=== PATIENT | male | born 1945 | race Caucasian/White ===

== ENCOUNTER 2024-09-27 06:06 | Inpatient (IN) | payer MEDICARE ==
[2024-09-27] MEDS ORDERED: Lidocaine 1% (PF) 30 ML VIAL ONE (06:51)
[2024-09-27] MEDS ORDERED: Heparin 10,000 UNITS/ 10 ML VIAL ONE (06:51)
[2024-09-27] MEDS ORDERED: Aspirin 81 mg Enteric Coated Tablet ONE (09:32)
[2024-09-27] MEDS ORDERED: Iopamidol 370 76% 100 ML VIAL ONE (11:47)
[2024-09-27 13:24] LABS: #Basophils Less than 0.03 10x3/uL (0.0-0.2); #Eosinophils 0.18 10x3/uL (0.0-0.7); #Monocytes 0.66 10x3/uL (0.11-0.59); #Neutrophils 3.35 10x3/uL (1.40-6.50); %Basophils 0.3 % (0.0-1.0); %Eosinophils 2.7 % (0.0-10.0); %Lymphocytes 37.4 % (21.0-51.0); %Monocytes 9.7 % (0.0-10.0); %Neutrophils 49.3 % (42.0-75.0); Hematocrit 42.9 % (42.0-52.0); Hemoglobin 14.2 g/dL (14.0-18.0); Mean Corpuscular Hemoglobin 31.1 pg (27.0-31.0); Mean Corpuscular Volume 93.9 fL (78.0-98.0); Platelet Count 160 10x3/uL (130-400); Red Blood Cell (RBC) Count 4.57 mill/uL (4.70-6.10); White Blood Cell (WBC) Count 6.79 10x3/uL (4.8-10.8)
[2024-09-27 13:45] LABS: PTT 31.0 sec (22.9-36.1)
[2024-09-27 13:46] LABS: Anion Gap 13 mmol/L (10-20); BUN (Urea Nitrogen) 11 mg/dL (8.4-25.7); Calc. Creatinine Clearance 108 mL/min (70-130); Calcium 8.8 mg/dL (7.8-10.44); Carbon Dioxide 26 mmol/L (23-31); Chloride 106 mmol/L (98-107); Glucose 96 mg/dL (83-110); INR-International Normal Ratio 1.1; Potassium 4.5 mmol/L (3.5-5.1); Prothrombin Time 14.4 sec (12.0-14.7); Sodium 140 mmol/L (136-145)
[2024-09-27] MEDS: Nitroglycerin 2% Ointment 1 INCH/1 GM Packet TOP SCH (14:02)
[2024-09-27] MEDS ORDERED: Nitroglycerin 0.4 MG TAB (25 Tab Bottle) SL PRN (14:30)
[2024-09-27] MEDS ORDERED: Sodium Chloride 0.9% 250 ML BAG (BAXTER) IVPB PRN (14:30)
[2024-09-27] MEDS ORDERED: Acetaminophen/Codeine 30-300mg Tablet PO PRN ×2 (14:30)
[2024-09-27] MEDS ORDERED: Aspirin 81 mg Enteric Coated Tablet PO SCH (18:00)
[2024-09-28 04:44] LABS: Cardiac Risk 7.1 (Less than 4.5); Cholesterol 220.0 mg/dl (< 200 Desired); HDL Cholesterol 31.0 mg/dL (>60 Neg Risk); LDL Cholesterol, Calculated 162.0 mg/dL; Triglycerides 136.0 mg/dL (Less than 150)
[2024-09-28] MEDS ORDERED: PHENYLEPHRINE-NS 100 MCG/ML 10 ML SYRINGE ONE ×2 (06:49→07:11)
[2024-09-28] MEDS ORDERED: Heparin 10,000 UNITS/1 ML VIAL 30,000 UNITS in Sodium Chloride 0.9% 1,000 ML FS SCH (07:00)
[2024-09-28] MEDS ORDERED: Rocuronium Bromide 10 MG/ML (10ML VIAL) ONE ×2 (07:10→08:04)
[2024-09-28] MEDS ORDERED: fentaNYL PF 100 MCG/2 ML SYRINGE ONE ×3 (07:10→11:37)
[2024-09-28] MEDS ORDERED: PROPOFOL 20 ML ONE ×2 (07:10→09:34)
[2024-09-28] MEDS ORDERED: CEFAZOLIN 1 GM VIAL ONE (07:11)
[2024-09-28] MEDS ORDERED: Lidocaine 2% PF 100 mg/5 ml Syringe ONE (07:11)
[2024-09-28] MEDS ORDERED: CEFAZOLIN 2 GM VIAL ONE (07:17)
[2024-09-28] MEDS ORDERED: Heparin 5,000 UNITS/ML VIAL ONE (08:18)
[2024-09-28] MEDS ORDERED: Heparin 30,000 units/30 ml VIAL ONE (08:18)
[2024-09-28] MEDS ORDERED: Cardioplegic Soln 1,000 ML BAG ONE (08:18)
[2024-09-28] MEDS ORDERED: Thrombin 5000 UNITS/5 ML VIAL ONE (08:18)
[2024-09-28] MEDS ORDERED: niCARdipine 25 MG/10 ML SDV ONE (11:14)
[2024-09-28] MEDS: Aspirin 81 mg Enteric Coated Tablet PO SCH (12:44)
[2024-09-28] MEDS ORDERED: HYDROcodone/Acetaminophen 5/325 mg Tablet PO PRN ×2 (13:05)
[2024-09-28] MEDS ORDERED: NOREPINEPHRINE 8 MG/250 ML-D5W 250 ML IVPB PRN (13:05)
[2024-09-28] MEDS ORDERED: Albumin 5% 12.5 GM (250 mL) BOT IVPB PRN ×2 (13:05)
[2024-09-28] MEDS ORDERED: Mag-Al 1200 mg/1200 mg/30 ML UDCUP PO PRN (13:05)
[2024-09-28] MEDS ORDERED: Bisacodyl 10 MG SUPP PR PRN (13:05)
[2024-09-28] MEDS ORDERED: hydrALAZINE 20 MG/ML VIAL SLOW IVP PRN (13:05)
[2024-09-28] MEDS ORDERED: Guaifenesin DM 100-10/5 ML UDCUP PO PRN (13:05)
[2024-09-28 13:10] LABS: Actual Bicarbonate (HCO3a) 20.8 mEq/L (22-28); Base Excess (BEa) -4.1 mEq/L (-2.0 to +3.0); CO2 Tension 37.8 mmHg (35.0-45.0); Calcium, Ionized (arterial) 1.10 mmol/L (1.12-1.30); Hematocrit-ABG 38 % (42.0-52.0); Hemoglobin (Hb) 12.8 g/dL (14.0-18.0); O2 Tension (PaO2), arterial 92.1 mmHg (> 70.0); Potassium - ABG Lab 3.89 mmol/L (3.70-5.30); pH, Arterial 7.359 (7.35-7.45)
[2024-09-28 13:12] LABS: ALV-art Gradient 217.150 mmHg (0-20); Puncture Site LA
[2024-09-28] MEDS ORDERED: Dextrose 50% Abboject 50 ML SYRINGE SLOW IVP PRN (13:15)
[2024-09-28] MEDS ORDERED: INSULIN REGULAR IN 0.9 % NACL 100 UNITS in Premix 1 BAG IVPB SCH (13:15)
[2024-09-28] MEDS ORDERED: Glucagon 1 MG/ML KIT SC PRN (13:15)
[2024-09-28] MEDS: Magnesium 2 GM/50 ML(in water) 2 GM in Premix 1 BAG IVPB SCH (13:47)
[2024-09-28] MEDS: Acetaminophen 325 MG TAB PO SCH (13:47)
[2024-09-28] MEDS: Post-Op Insulin Drip Protocol IVPB ONE (13:48)
[2024-09-28 14:00] LABS: Anion Gap 11 mmol/L (10-20); BUN (Urea Nitrogen) 9 mg/dL (8.4-25.7); Calc. Creatinine Clearance 138 mL/min (70-130); Calcium 7.7 mg/dL (7.8-10.44); Carbon Dioxide 20 mmol/L (23-31); Chloride 111 mmol/L (98-107); Glucose 163 mg/dL (83-110); Potassium 4.0 mmol/L (3.5-5.1); Sodium 138 mmol/L (136-145)
[2024-09-28 14:04] LABS: PTT 33.0 sec (22.9-36.1)
[2024-09-28 14:07] LABS: INR-International Normal Ratio 1.4; Prothrombin Time 17.2 sec (12.0-14.7)
[2024-09-28 14:14] LABS: #Basophils Less than 0.03 10x3/uL (0.0-0.2); #Eosinophils 0.04 10x3/uL (0.0-0.7); #Monocytes 0.79 10x3/uL (0.11-0.59); #Neutrophils 11.07 10x3/uL (1.40-6.50); %Basophils 0.1 % (0.0-1.0); %Eosinophils 0.3 % (0.0-10.0); %Lymphocytes 11.8 % (21.0-51.0); %Monocytes 5.8 % (0.0-10.0); %Neutrophils 81.3 % (42.0-75.0); Hematocrit 35.4 % (42.0-52.0); Hemoglobin 11.9 g/dL (14.0-18.0); Mean Corpuscular Hemoglobin 31.7 pg (27.0-31.0); Mean Corpuscular Volume 94.4 fL (78.0-98.0); Platelet Count 129 10x3/uL (130-400); Red Blood Cell (RBC) Count 3.75 mill/uL (4.70-6.10); White Blood Cell (WBC) Count 13.60 10x3/uL (4.8-10.8)
[2024-09-28] MEDS ORDERED: niCARdipine 25 MG in Sodium Chloride 0.9% 250 ML 250 ML IVPB SCH (14:30)
[2024-09-28 15:04] VITALS: BMI 32.7
[2024-09-28] MEDS: Potassium Chloride 20 MEQ (100 mL) BAG IVPB PRN (15:27)
[2024-09-28 15:28] LABS: Burr Cells SLIGHT = 2-5 cells HPF (0-1); Macrocytosis SLIGHT = 6-15 cells HPF (0-5); Platelet Adequacy Comment Platelets Decreased; Poikilocytosis SLIGHT = 6-15 cells HPF (0-5)
[2024-09-28 17:23] LABS: Actual Bicarbonate (HCO3a) 20.1 mEq/L (22-28); Base Excess (BEa) -4.5 mEq/L (-2.0 to +3.0); CO2 Tension 35.6 mmHg (35.0-45.0); Calcium, Ionized (arterial) 1.10 mmol/L (1.12-1.30); Hematocrit-ABG 40 % (42.0-52.0); Hemoglobin (Hb) 13.5 g/dL (14.0-18.0); O2 Tension (PaO2), arterial 93.3 mmHg (> 70.0); Potassium - ABG Lab 4.52 mmol/L (3.70-5.30); pH, Arterial 7.370 (7.35-7.45)
[2024-09-28 17:25] LABS: ALV-art Gradient 147.400 mmHg (0-20); Puncture Site Arterial Line
[2024-09-28 18:26] LABS: Hematocrit 38.3 % (42.0-52.0); Hemoglobin 12.6 g/dL (14.0-18.0)
[2024-09-28] MEDS: Aspirin Chewable 81 MG TAB PO SCH ×2 (18:44→19:08)
[2024-09-28] MEDS: Ketorolac Tromethamine 30 MG (1 mL) VIAL IVP SCH (18:57)
[2024-09-28 19:01] LABS: Potassium 4.5 mmol/L (3.5-5.1)
[2024-09-28] MEDS: Famotidine/PF 20 mg/2ml Vial SLOW IVP SCH (20:24)
[2024-09-29 04:41] LABS: #Basophils Less than 0.03 10x3/uL (0.0-0.2); #Eosinophils Less than 0.03 10x3/uL (0.0-0.7); #Monocytes 1.20 10x3/uL (0.11-0.59); #Neutrophils 11.53 10x3/uL (1.40-6.50); %Basophils 0.1 % (0.0-1.0); %Eosinophils 0.0 % (0.0-10.0); %Lymphocytes 10.6 % (21.0-51.0); %Monocytes 8.4 % (0.0-10.0); %Neutrophils 80.3 % (42.0-75.0); Hematocrit 34.3 % (42.0-52.0); Hemoglobin 11.2 g/dL (14.0-18.0); Mean Corpuscular Hemoglobin 31.2 pg (27.0-31.0); Mean Corpuscular Volume 95.5 fL (78.0-98.0); Platelet Count 151 10x3/uL (130-400); Red Blood Cell (RBC) Count 3.59 mill/uL (4.70-6.10); White Blood Cell (WBC) Count 14.36 10x3/uL (4.8-10.8)
[2024-09-29 04:59] LABS: Anion Gap 12 mmol/L (10-20); BUN (Urea Nitrogen) 12 mg/dL (8.4-25.7); Calc. Creatinine Clearance 117 mL/min (70-130); Calcium 7.8 mg/dL (7.8-10.44); Carbon Dioxide 21 mmol/L (23-31); Chloride 111 mmol/L (98-107); Glucose 132 mg/dL (83-110); Potassium 4.5 mmol/L (3.5-5.1); Sodium 139 mmol/L (136-145)
[2024-09-29] MEDS: Furosemide 40 MG TAB PO SCH (08:46)
[2024-09-29] MEDS: Aspirin 325 MG TAB PO SCH (08:47)
[2024-09-29] MEDS: Pantoprazole 40 MG DR.TAB PO SCH (08:47)
[2024-09-29] MEDS: Magnesium 2 GM/50 ML(in water) 2 GM in Premix 1 BAG IVPB SCH (08:49)
[2024-09-29] MEDS ORDERED: Insulin Glargine 30 UNITS/0.3 ML VIAL SC PRN (13:15)
[2024-09-29] MEDS: Heparin 5,000 UNITS/ML VIAL SC SCH (16:33)
[2024-09-30 04:14] LABS: #Basophils Less than 0.03 10x3/uL (0.0-0.2); #Eosinophils 0.06 10x3/uL (0.0-0.7); #Monocytes 1.20 10x3/uL (0.11-0.59); #Neutrophils 9.73 10x3/uL (1.40-6.50); %Basophils 0.1 % (0.0-1.0); %Eosinophils 0.4 % (0.0-10.0); %Lymphocytes 20.8 % (21.0-51.0); %Monocytes 8.6 % (0.0-10.0); %Neutrophils 69.5 % (42.0-75.0); Hematocrit 29.7 % (42.0-52.0); Hemoglobin 9.9 g/dL (14.0-18.0); Mean Corpuscular Hemoglobin 31.3 pg (27.0-31.0); Mean Corpuscular Volume 94.0 fL (78.0-98.0); Platelet Count 127 10x3/uL (130-400); Red Blood Cell (RBC) Count 3.16 mill/uL (4.70-6.10); White Blood Cell (WBC) Count 14.01 10x3/uL (4.8-10.8)
[2024-09-30 04:19] LABS: Anion Gap 9 mmol/L (10-20); BUN (Urea Nitrogen) 16 mg/dL (8.4-25.7); Calc. Creatinine Clearance 107 mL/min (70-130); Calcium 7.7 mg/dL (7.8-10.44); Carbon Dioxide 23 mmol/L (23-31); Chloride 108 mmol/L (98-107); Glucose 119 mg/dL (83-110); Potassium 3.9 mmol/L (3.5-5.1); Sodium 136 mmol/L (136-145)
[2024-09-30] MEDS: Acetaminophen 325 MG TAB PO SCH (13:40)
[2024-09-30] MEDS ORDERED: diphenhydrAMINE 25 MG CAP PO PRN (15:54)
[2024-09-30] MEDS ORDERED: Milk Of Magnesia 30 ML UDCUP PO PRN (15:54)
[2024-09-30] MEDS ORDERED: Nitroglycerin 0.4 MG TAB (25 Tab Bottle) SL PRN (15:54)
[2024-09-30] MEDS ORDERED: Mineral Oil ENEMA PR PRN (15:54)
[2024-09-30] MEDS ORDERED: Guaifenesin DM 100-10/5 ML UDCUP PO PRN (15:54)
[2024-09-30] MEDS ORDERED: Artificial Tear Ophth Sol 15 ML BOT EA EYE PRN (15:54)
[2024-09-30] MEDS: Ondansetron PF 4 MG/2 ML Vial IVP PRN (17:43)
[2024-10-01] MEDS: Furosemide 20 MG (2 mL) VIAL SLOW IVP SCH ×2 (08:55→14:17)
[2024-10-01] MEDS: Mupirocin 1 GM TUBE TP SCH (20:42)
[2024-10-02] MEDS: Lactulose 20 GM (30 mL) UDCUP PO SCH (14:00)
[2024-10-03] MEDS: Furosemide 20 MG TAB PO SCH (09:03)
[2024-10-03 12:12] VITALS: BP 116/77; TEMP 98.6
== END 2024-10-03 12:15 | disposition home or self-care (01) | DRG 234 ==
LOC: SDC 06:06 → 2NO 09:26 → CCU 09-28 10:00 → PCU 09-30 15:58
PROVIDERS: ADMIT Internal Medicine Cardiovascular Disease; ATTEND Internal Medicine Cardiovascular Disease
PROC: 4A023N7 Measurement of Cardiac Sampling and Pressure, Left Heart, Percutaneous Approach (ICD-10-PCS; 2024-09-27)
PROC: B2151ZZ Fluoroscopy of Left Heart using Low Osmolar Contrast (ICD-10-PCS; 2024-09-27)
PROC: B2111ZZ Fluoroscopy of Multiple Coronary Arteries using Low Osmolar Contrast (ICD-10-PCS; 2024-09-27)
PROC: 02100Z9 Bypass Coronary Artery, One Artery from Left Internal Mammary, Open Approach (ICD-10-PCS; principal; 2024-09-28)
PROC: 021109W Bypass Coronary Artery, Two Arteries from Aorta with Autologous Venous Tissue, Open Approach (ICD-10-PCS; 2024-09-28)
PROC: 06BQ4ZZ Excision of Left Saphenous Vein, Percutaneous Endoscopic Approach (ICD-10-PCS; 2024-09-28)
PROC: 02L70CK Occlusion of Left Atrial Appendage with Extraluminal Device, Open Approach (ICD-10-PCS; 2024-09-28)
PROC: 5A1221Z Performance of Cardiac Output, Continuous (ICD-10-PCS; 2024-09-28)
PROC: 0PH000Z Insertion of Rigid Plate Internal Fixation Device into Sternum, Open Approach (ICD-10-PCS; 2024-09-28)
PROC: 4A133R1 Monitoring of Arterial Saturation, Peripheral, Percutaneous Approach (ICD-10-PCS; 2024-09-28)
PROC: 07TM0ZZ Resection of Thymus, Open Approach (ICD-10-PCS; 2024-09-28)
PROC: 3E033XZ Introduction of Vasopressor into Peripheral Vein, Percutaneous Approach (ICD-10-PCS; 2024-09-28)
PROC: 30233J1 Transfusion of Nonautologous Serum Albumin into Peripheral Vein, Percutaneous Approach (ICD-10-PCS; 2024-09-28)
PROC: 3E03329 Introduction of Other Anti-infective into Peripheral Vein, Percutaneous Approach (ICD-10-PCS; 2024-09-28)
PROC: 5A09357 Assistance with Respiratory Ventilation, Less than 24 Consecutive Hours, Continuous Positive Airway Pressure (ICD-10-PCS; 2024-10-01)
DX: I25.110 Atherosclerotic heart disease of native coronary artery with unstable angina pectoris (principal); I45.10 Unspecified right bundle-branch block; R00.1 Bradycardia, unspecified; I11.0 Hypertensive heart disease with heart failure; I50.9 Heart failure, unspecified; I35.0 Nonrheumatic aortic (valve) stenosis; G70.00 Myasthenia gravis without (acute) exacerbation; E66.9 Obesity, unspecified; E78.5 Hyperlipidemia, unspecified; Z79.82 Long term (current) use of aspirin; Z98.890 Other specified postprocedural states; Z85.828 Personal history of other malignant neoplasm of skin; Z68.32 Body mass index [BMI] 32.0-32.9, adult
CPT/HCPCS: 36415; 36416; 36430; 71045; 80048; 80053; 80061; 80076; 82805; 83036; 85025; 85610; 85730; 86850; 86900; 86901; 88305; 93005; 93010; 93306; 93458; 93798; 94002; 97139; 99152; 99153; A4311; A4648; C1713; C1751; C1769; C1776; J0169; J0665; J0690; J1100; J1642; J1644; J1815; J1885; J1940; J2003; J2250; J2405; J2440; J2704; J2720; J3010; J3370; J3475; J3480; J3490; J7030; P9045; Q9967

== ENCOUNTER 2024-10-10 21:15 | Observation (INO) | payer MEDICARE ==
[2024-10-10 22:27] LABS: #Basophils 0.04 10x3/uL (0.0-0.2); #Eosinophils 0.55 10x3/uL (0.0-0.7); #Monocytes 0.86 10x3/uL (0.11-0.59); #Neutrophils 6.49 10x3/uL (1.40-6.50); %Basophils 0.4 % (0.0-1.0); %Eosinophils 5.3 % (0.0-10.0); %Lymphocytes 23.2 % (21.0-51.0); %Monocytes 8.3 % (0.0-10.0); %Neutrophils 62.5 % (42.0-75.0); Hematocrit 31.4 % (42.0-52.0); Hemoglobin 10.4 g/dL (14.0-18.0); Mean Corpuscular Hemoglobin 31.0 pg (27.0-31.0); Mean Corpuscular Volume 93.5 fL (78.0-98.0); Platelet Count 331 10x3/uL (130-400); Red Blood Cell (RBC) Count 3.36 mill/uL (4.70-6.10); White Blood Cell (WBC) Count 10.38 10x3/uL (4.8-10.8)
[2024-10-10 22:46] LABS: ALT (SGPT) 15 U/L (Less than 45); AST (SGOT) 20 U/L (11-34); Albumin 2.9 g/dL (3.1-4.5); Alkaline Phosphatase 65 U/L (40-110); Anion Gap 16 mmol/L (10-20); BUN (Urea Nitrogen) 12 mg/dL (8.4-25.7); Bilirubin, Total 0.6 mg/dL (0.3-1.2); Calc. Creatinine Clearance 0 mL/min (70-130); Calcium 8.7 mg/dL (7.8-10.44); Carbon Dioxide 22 mmol/L (23-31); Chloride 105 mmol/L (98-107); Globulin 3.8 g/dL (2.4-3.5); Glucose 112 mg/dL (83-110); Potassium 4.4 mmol/L (3.5-5.1); Sodium 139 mmol/L (136-145)
[2024-10-10 22:48] LABS: Troponin I 0.117 ng/mL (< 0.028)
[2024-10-10] MEDS ORDERED: Senokot S 8.6-50 MG TAB PO PRN (23:32)
[2024-10-10] MEDS ORDERED: Ondansetron PF 4 MG/2 ML Vial IVP PRN (23:32)
[2024-10-10] MEDS ORDERED: Calcium Carbonate 500 MG ChewTAB PO PRN (23:32)
[2024-10-10] MEDS ORDERED: Electrolyte Replacement Protocol 1 EACH FS SCH (23:45)
[2024-10-11 01:09] VITALS: BMI 30.7
[2024-10-11 05:41] LABS: #Basophils 0.05 10x3/uL (0.0-0.2); #Eosinophils 0.61 10x3/uL (0.0-0.7); #Monocytes 0.81 10x3/uL (0.11-0.59); #Neutrophils 4.98 10x3/uL (1.40-6.50); %Basophils 0.6 % (0.0-1.0); %Eosinophils 6.9 % (0.0-10.0); %Lymphocytes 26.4 % (21.0-51.0); %Monocytes 9.2 % (0.0-10.0); %Neutrophils 56.3 % (42.0-75.0); Hematocrit 29.3 % (42.0-52.0); Hemoglobin 9.5 g/dL (14.0-18.0); Mean Corpuscular Hemoglobin 30.9 pg (27.0-31.0); Mean Corpuscular Volume 95.4 fL (78.0-98.0); Platelet Count 276 10x3/uL (130-400); Red Blood Cell (RBC) Count 3.07 mill/uL (4.70-6.10); White Blood Cell (WBC) Count 8.83 10x3/uL (4.8-10.8)
[2024-10-11 06:10] LABS: Troponin I 0.101 ng/mL (< 0.028)
[2024-10-11 06:37] LABS: Bacteria/HPF None Seen HPF (None Seen); CAUTI Indications for Culture Alt mental st,lethar; Glucose, Urine (Dipstick) Normal (Negative); Leukocyte Negative Leu/uL (Negative); Protein, Urine (Dipstick) Negative (Neg-Trace); RBC/HPF 0-3 HPF (0-3); Specific Gravity, Urine 1.027 (1.002-1.036); WBC/HPF 0-3 HPF (0-3)
[2024-10-11 06:39] LABS: ALT (SGPT) 14 U/L (Less than 45); AST (SGOT) 22 U/L (11-34); Albumin 2.6 g/dL (3.1-4.5); Alkaline Phosphatase 58 U/L (40-110); Anion Gap 14 mmol/L (10-20); BUN (Urea Nitrogen) 12 mg/dL (8.4-25.7); Bilirubin, Total 0.6 mg/dL (0.3-1.2); CK (CPK) 29 U/L (30-200); Calc. Creatinine Clearance 100 mL/min (70-130); Calcium 8.3 mg/dL (7.8-10.44); Carbon Dioxide 21 mmol/L (23-31); Chloride 106 mmol/L (98-107); Globulin 3.3 g/dL (2.4-3.5); Glucose 97 mg/dL (83-110); Magnesium 2.1 mg/dL (1.6-2.6); Potassium 4.1 mmol/L (3.5-5.1); Sodium 137 mmol/L (136-145)
[2024-10-11 06:43] LABS: Urine Culture Reflex No No
[2024-10-11] MEDS: Aspirin 325 MG TAB PO SCH (09:31)
[2024-10-11] MEDS: Enoxaparin 40 MG (0.4 mL) SYRINGE SC SCH (09:31)
[2024-10-11] MEDS: Acetaminophen 325 MG TAB PO PRN (10:20)
[2024-10-11 20:41] VITALS: BMI 30.7
[2024-10-12 15:31] VITALS: BP 125/75; TEMP 98.1
== END 2024-10-12 17:23 | disposition home or self-care (01) ==
LOC: SUATTDRO 21:15 → ERS 21:15 → 2SE 23:32
PROVIDERS: ADMIT Internal Medicine; ATTEND Hospitalist
PROC: B24BZZZ Ultrasonography of Heart with Aorta (ICD-10-PCS; principal; 2024-10-11)
DX: I97.190 Other postprocedural cardiac functional disturbances following cardiac surgery (principal); I48.91 Unspecified atrial fibrillation; I10 Essential (primary) hypertension; I25.10 Atherosclerotic heart disease of native coronary artery without angina pectoris; E78.5 Hyperlipidemia, unspecified; D62 Acute posthemorrhagic anemia; Z95.1 Presence of aortocoronary bypass graft; Z79.82 Long term (current) use of aspirin; Z79.899 Other long term (current) drug therapy
CPT/HCPCS: 70450; 71045; 80053; 81001; 82550; 82962; 83605; 83735; 83880 ×2; 84100; 84484 ×2; 85025; 86041; 93005; 93306; 97530 ×2; 99285; J1650; J7030; 36415; 36416; 84443